=== PATIENT | female | born 1965 | race Hispanic/Latino ===

== ENCOUNTER 2016-12-18 07:28 | Emergency (ER) | payer OTHER ==
[~2016-12-18] VITALS: Ht 154.9 cm; Wt 74.1 kg
[2016-12-18 07:32] VITALS: BP 129/66; PULSE 112; RESP 24; O2SAT 96
--- NOTE | 2016-12-18 07:50 | ED.REPORT ---
HPI-General Illness Date of Service Dec 18, 2016 ED Provider: Joseph Polanco MD The patient is a 51 year old female who presents to the emergency department complaining of flu-like symptoms that began 3 days ago. She has experienced a fever, myalgias, nausea, vomiting, and a headache. She denies diarrhea or cough. Several people at her work have been sick with similar symptoms. She did not get a flu shot this year. Nursing Notes Stated Complaint: VOMITING,HEADACHE,FEVER,BODY ACHES Chief Complaint: General Complaint Nursing Notes Reviewed: Yes Allergies: Coded Allergies: No Known Drug Allergies (Verified Allergy, Unknown, 12/18/16) Scheduled Oseltamivir Phosphate (Tamiflu) 75 Mg Capsule 75 MG PO BID Scheduled PRN Ondansetron ODT (Zofran ODT) 4 Mg Tablet 4 MG PO Q4H PRN PRN For Nausea General Time Seen by MD: 07:49 Chief Complaint Flu-like illness Hx Obtained From: Patient Arrived By: Walk-in Sudden in Onset?: Yes Onset Occurred: 3 days ago Symptom Duration: Since onset Location: : Head Quality: Painful Severity: Current: Moderate Severity: Maximum: Moderate Associated with: Reports: Fever, Nausea, Vomiting Pertinent Negative: Pt denies other symptoms Recent Healthcare: No recent doctor visit, No recent hospitalization Similar Sx Previous: No Past Medical History Past Medical History None Family History Noncontributory Social History Other Social History: Good social support, Local resident Occupation She packages seafood Ambulatory Status Independent Review of Systems Full Review of Systems Constitutional: Reports: Fever Respiratory: Denies: Non-productive cough GI: Reports: Nausea, Vomiting, Denies: Diarrhea Musculoskeletal: Reports: Myalgia Neurologic: Reports: Headache Complete sys rev & neg: except as marked. Physical Exam Vital Signs Vital Signs Date Time Temp Pulse Resp B/P Pulse Ox O2 Delivery O2 Flow Rate FiO2 12/18/16 10:23 37.8 88 18 126/70 91 Room Air 12/18/16 10:05 37.8 88 18 126/70 91 Room Air 12/18/16 07:32 36.8 112 24 129/66 96 Room Air Initial VS: Reviewed Head / Eyes: Atraumatic, Normocephalic, PERRL Lymphatic: No lymphadenopathy Extremities: Vascular intact, Neuro intact, No swelling, No tenderness Skin: Warm, Dry, No cyanosis Neurologic: Alert, Oriented, Nonfocal Psychiatric: Mood/affect normal, Behavior normal, Normal thought content General/Constitutional: Awake, Alert, Cooperative ENT: Airway patent Mouth: Positive: Mucous membranes dry (slightly) Neck: Supple, Full range of motion, No swelling, Non-tender, No midline vertebral tend Respiratory / Chest: Atraumatic, Breath sounds NL, No respiratory distress, No rales, No rhonchi, No wheezing Cardiovascular: Heart rate NL, Regular rhythm, Heart sounds NL, No rubs, Cap refill not delayed, Peripheral circulation NL Abdomen: Atraumatic, Soft, Non-tender, No guarding, No rebound, BS normoactive , No distention Lower Extremity / Pelvis / MS: Neurologic intact, Vascular intact, No edema no calf swelling or tenderness Interpretation & Diagnostics Interpretation & Diagnostics: Positive for influenza B Re-Eval/Medical Decision Med Decision/Clinical Course The patient is a 51 year old female who presents to the emergency department complaining of flu-like symptoms that began 3 days ago. She has experienced a fever, myalgias, nausea, vomiting, and a headache. She denies diarrhea or cough. Several people at her work have been sick with similar symptoms. She did not get a flu shot this year. Upon arrival the patient is tachycardic with a heart rate of 112, otherwise afebrile and hemodynamically stable. Positive for influenza B Treated with Zofran, IVF, and Toradol. Patient reported significant symptomatic improvement. Thereafter she was able to tolerate PO. Repeat examination remained benign. Lungs clear and my suspicion for bacterial pneumonia is very low. I do not feel that chest x-ray is indicated. Patient is without meningismus and overall clinical picture is not suggestive of acute bacterial meningitis. Abdominal examination benign without any findings suggestive of acute surgical abdominal process. Tachycardia has improved with heart rate in the 80s and patient remains afebrile and clinically stable. She will be started on Tamiflu. I prescribed Zofran for nausea and advised her to use NSAIDs or Tylenol as needed for fever and rest/and drink lots of fluids. She will follow up with her primary care physician early next week. Follow-up and return precautions were reviewed in detail and she was discharged in good condition. Source of Hx: Old records Time of Eval: 10:03 Re-Evaluation/Progress Note: Rechecked the patient. She is feeling better. Discussed results, diagnosis, and plan for discharge. Counseled Regarding: Diagnosis, Lab results, Need for follow-up, When/why to return to ED Discharge & Departure Primary Impression: Influenza B Additional Impressions: Headache Headache type: unspecified Headache chronicity pattern: unspecified pattern Intractability: not intractable Qualified Code: R51 - Headache Myalgia Body aches Fever Fever type: unspecified Qualified Code: R50.9 - Fever, unspecified Tachycardia Disposition: Home Discharge Condition All VS Reviewed: Yes Condition: Stable Patient Instructions: Influenza (ED) Additional Instructions: Thank you for seeking care at the emergency room. It is difficult for us to make definitive diagnoses in the ED but we believe that you are experiencing symptoms related to influenza B. Our primary goal today in the ED was to evaluate you for any life-threatening conditions. Your evaluation was reassuring. You will be discharged with a prescription for Tamiflu and Zofran. You should follow-up with a primary doctor in the next week. You should return to the ED immediately if you develop uncontrollable vomiting, shortness of breath, chest pain, lightheadedness, weakness or any other concerning signs or symptoms. Thank you for letting us partake in your care today. Referrals: [facility] Scribe Attestation Portions of this note were transcribed by Rosa Corbin. I, Dr. Polanco personally performed the history, physical exam and medical decision-making; I reviewed and confirmed the accuracy of the information in the transcribed note. Signed by: Bobbi Ortiz, 12/18/2016 and 1010. Joseph Polanco MD Dec 18, 2016 07:50 Rosa Corbin Dec 18, 2016 07:54
[2016-12-18] MEDS ORDERED: 0.9% Sodium Chloride 1,000 ML IV ONE (08:00)
[2016-12-18] MEDS ORDERED: Ondansetron 2 mg/mL 2 mL Inj IVPUSH ONE (08:00)
[2016-12-18] MEDS ORDERED: TAM75UDCAP PO (09:29)
[2016-12-18] MEDS ORDERED: ONDA4TAB9 PO (10:03)
[2016-12-18 10:05] VITALS: BP 126/70; PULSE 88; RESP 18; O2SAT 91
[2016-12-18 10:23] VITALS: BP 126/70; PULSE 88; RESP 18; O2SAT 91
== END 2016-12-18 10:24 | disposition home or self-care (01) ==
LOC: SED 07:28
DX: J10.89 Influenza due to other identified influenza virus with other manifestations (principal); R00.0 Tachycardia, unspecified
CPT/HCPCS: 87804; 96361; 96374; 96375; 99284; J2405; J7030